=== PATIENT | female | born 1945 | race Caucasian/White ===

== ENCOUNTER 2017-07-17 16:25 | Emergency (ER) | payer MEDICARE ==
[2017-07-17 16:34] VITALS: BP 132/51
[2017-07-17] MEDS ORDERED: Lidocaine 1%* 5 ML VIAL INJ ONE (17:47)
[2017-07-17] MEDS ORDERED: Lidocaine 1% INJ* 10 MG/ML 30 ML SDV ONE (17:52)
--- NOTE | 2017-07-17 17:52 | ED ---
Laceration/Wound HPI - HPI Summary HPI Summary: 72F presents with laceration to right wright. She got it hit by a car door. She denies any other injury. She states that area bleed a lot but is not bleeding now. She has minimal pain in the area. Her tetanus was 2 years ago. She is still able to ambulate on it. She has history of lymphedema and is DM. There is no active bleeding. - History of Current Complaint Stated Complaint: LACERATION TO LEG Time Seen by Provider: 07/17/17 17:31 Pain Intensity: 5 - Allergy/Home Medications Allergies/Adverse Reactions: Allergies Allergy/AdvReac Type Severity Reaction Status Date / Time Ammonium Lactate Allergy "turned Verified 07/17/17 16:39 [From Amlactin Distribution [skin] Pack] blood red and burned like fire" Meperidine [From Demerol HCl] Allergy "Tongue Verified 07/17/17 16:39 swells, throat swells, vomiting" Methylparaben Allergy "turned Verified 07/17/17 16:39 [From Amlactin Distribution [skin] Pack] blood red and burned like fire" Metronidazole Allergy Rash Verified 07/17/17 16:39 Pramoxine Allergy "turned Verified 07/17/17 16:39 [From Amlactin Distribution [skin] Pack] blood red and burned like fire" Propylparaben Allergy "turned Verified 07/17/17 16:39 [From Amlactin Distribution [skin] Pack] blood red and burned like fire" PMH/Surg Hx/FS Hx/Imm Hx Endocrine/Hematology History: Denies: Hx Anticoagulant Therapy Cardiovascular History: Reports: Hx Hypertension - Surgical History Surgery Procedure, Year, and Place: Bariatric Bypass, 2012; C6 C7 Fusion; Right Rotator Cuff; Left Knee ACL; Partial Hysterectomy (one ovary left); D&Cs, Tonsillectomy Infectious Disease History: No Infectious Disease History: Denies: Traveled Outside the [place] in Last 30 Days - Family History Known Family History: Positive: Hypertension - Social History Alcohol Use: Rare Substance Use Type: Reports: None Smoking Status (MU): Never Smoked Tobacco Review of Systems Negative: Fever Negative: Chest Pain Negative: Shortness Of Breath Positive: Other - laceration right wright All Other Systems Reviewed And Are Negative: Yes Physical Exam Triage Information Reviewed: Yes Vital Signs On Initial Exam: Initial Vitals Temp Pulse Resp BP Pulse Ox 97.0 F 58 16 132/51 97 07/17/17 16:30 07/17/17 16:30 07/17/17 16:30 07/17/17 16:30 07/17/17 16:30 Vital Signs Reviewed: Yes Appearance: Positive: Well-Appearing Skin: Positive: Warm, Dry, Other - 5cm by 1/2cm laceration Head/Face: Positive: Normal Head/Face Inspection Eyes: Positive: Normal, Conjunctiva Clear Respiratory/Lung Sounds: Positive: Clear to Auscultation, Breath Sounds Present Cardiovascular: Positive: Normal, RRR Musculoskeletal: Positive: Strength/ROM Intact - right leg, Other - good pulses , sensation grossly intact Neurological: Positive: Normal Psychiatric: Positive: Normal - [place] Coma Scale Coma Scale Total: 15 Procedures - Laceration/Wound Repair 1 Location: Other - right lower leg Description: Linear Anesthesia: Local, 1.0% Length, Depth and Shape: 5cm by 1/2cm Betadine Prep?: Yes Irrigated w/ Saline (ccs): 100 Laceration/Wound Explored: clean Closure: Single Layer Suture Type: Prolene - 4-0 Number of Sutures: 8 - 7 simple, 1 vertical mattress Layer Closure?: No Sterile Dressing Applied?: Yes - telfa, neosporin, and coband Diagnostics - Vital Signs Vital Signs Temp Pulse Resp BP Pulse Ox 07/17/17 16:30 97.0 F 58 16 132/51 97 - Laboratory Lab Statement: Any lab studies that have been ordered have been reviewed, and results considered in the medical decision making process. Laceration Repair Course/Dx - Course Course Of Treatment: 72F presents with laceration to right wright. She got it hit by a car door. She denies any other injury. She states that area bleed a lot but is not bleeding now. She has minimal pain in the area. Her tetanus was 2 years ago. She is still able to ambulate on it. She has history of lymphedema and is DM. There is no active bleeding. on exam has 5cm by 1/2cm laceration that placed 8 sutures in. 7 simple and [address] on ppx antibiotic due to medical history. patient understand and agrees with plan. - Differential Dx Differental Diagnoses: Abrasion, Avulsion, Laceration - Clinical Impression Provider Diagnoses: Laceration of right lower leg Discharge - Discharge Plan Condition: Good Disposition: HOME Prescriptions: Cephalexin CAP* [Keflex CAP*] 500 mg PO BID #9 cap Patient Education Materials: Care For Your Stitches (ED) Referrals: No Primary Care Phys,NOPCP [Primary Care Provider] - Additional Instructions: Take Tylenol or ibuprofen for pain Take antibiotic twice a day for 5 days Keep area clean and dry for 24 hours Return to ED or primary in 10-14 days to have sutures removed Return to ED if develop signs of infection such as fever, spreading redness, or pus.
== END 2017-07-17 18:48 | disposition home or self-care (01) ==
LOC: ED 16:25
DX: S81.811A Laceration without foreign body, right lower leg, initial encounter (principal); W22.8XXA Striking against or struck by other objects, initial encounter; Y93.9 Activity, unspecified; Y92.9 Unspecified place or not applicable; I10 Essential (primary) hypertension; Z98.84 Bariatric surgery status; Z90.711 Acquired absence of uterus with remaining cervical stump; Z90.89 Acquired absence of other organs; Z88.5 Allergy status to narcotic agent; Z88.8 Allergy status to other drugs, medicaments and biological substances
CPT/HCPCS: 12002; 99282